=== PATIENT | female | born 1975 | race Caucasian/White ===

== ENCOUNTER 2019-11-04 08:28 | Outpatient (CLI) | payer OTHER, SELFPAY ==
--- NOTE | 2019-11-04 08:33 | MM_ITS ---
WS: [id number] SCREENING DIGITAL MAMMOGRAM WITH CAD HISTORY: SCREENING COMPARISON: None available. Bilateral CC and MLO views submitted. Computer aided detection analyzed. Breast composition: The breasts are extremely dense, which lowers the sensitivity of mammography. No suspicious masses, microcalcifications or architectural distortion. MM/[id number] IMPRESSION: BI-RADS: 1-Negative FOLLOW UP: 1 Year Follow-up
== END 2019-11-04 08:29 | disposition home or self-care (01) ==
LOC: RADSHAW 08:28
PROVIDERS: PCP Family Medicine; Visit Provider Family Medicine
DX: Z12.31 Encounter for screening mammogram for malignant neoplasm of breast (principal)
CPT/HCPCS: 77067

== ENCOUNTER → 2022-10-23 16:19 | Outpatient (BNVA) | payer SELFPAY | PROVIDERS: PCP Family Medicine; Visit Provider Family Medicine | DX: Z01.419 Encounter for gynecological examination (general) (routine) without abnormal findings (principal); Z12.4 Encounter for screening for malignant neoplasm of cervix | CPT/HCPCS: 87624 ==

== ENCOUNTER 2022-11-27 11:59 | Outpatient (CLI) | payer OTHER, SELFPAY ==
--- NOTE | 2022-11-27 12:06 | MM_ITS ---
WS: [id number] BILATERAL 3D TOMOSYNTHESIS DIGITAL SCREENING MAMMOGRAPHY WITH CAD CLINICAL INFORMATION: Screening mammogram HISTORY: Screening mammogram. No current complaints. COMPARISON: November 04, 2019 TECHNIQUE: Bilateral CC and MLO views. FINDINGS: The breasts are composed of heterogeneous fibroglandular density tissue, which can limit the detectio n of small underlying mass lesions. No suspicious mass, asymmetry, calcifications, or architectural d istortion. No evidence of malignancy. MM/[id number] IMPRESSION: BI-RADS: 1-Negative FOLLOW UP: 1 Year Follow-up Recommend return to annual screening mammography.
== END 2022-11-27 12:00 | disposition home or self-care (01) ==
LOC: RAD 12:04 → MOBLMAM 12:06
PROVIDERS: PCP Family Medicine; Visit Provider Family Medicine
DX: Z12.31 Encounter for screening mammogram for malignant neoplasm of breast (principal)
CPT/HCPCS: 77063; 77067

== ENCOUNTER 2023-03-28 06:00 | Day surgery (SDC) | payer SELFPAY ==
[2023-03-28 06:20] VITALS: BP 119/75; PULSE 74; RESP 16; TEMP 36.5; O2SAT 99; BMI 29.8
[2023-03-28 06:24] LABS: OR HCG Qualitative Urine Negative (Negative)
[2023-03-28] MEDS: sodium chloride 0.9% 1,000 ML 30 ML IV (06:26)
--- NOTE | 2023-03-28 06:55 | ANES.PREANE2 ---
Pre-Anesthetic Assessment Height/Weight: Height 1.68 m Weight 83.915 kg Temp Pulse Resp BP Pulse Ox O2 Del Method 97.7 F 74 16 119/75 99 Room Air 03/28/23 06:20 03/28/23 06:20 03/28/23 06:20 03/28/23 06:20 03/28/23 06:20 03/28/23 06:20 Preop Diagnosis: screening Operation Date: 03/28/23 07:00 Proposed Procedures p [id number] colon D0121 screen colon A risk Z12.11(Not Applicable) - Logan Chaves, DO Was Beta Alisha taken within 24 hours: N/A Was Clonidine taken within 24 hours: N/A Last intake: Intake Last Liquid Date 03/27/23 Last Liquid Time 19:00 Last Solid Date 03/26/23 Last Solid Time 18:00 Social No alcohol and No tobacco Exam alert, oriented x 3, clear to auscultation bilaterally and regular rate & rhythm Airway Submandibular: within normal limits Cervical ROM: within normal limits Mallampati: Class I History/ROS No significant history except as noted and No significant complaints Pulmonary None reported CV/HEM None reported None reported Hepatic None reported GI None reported Metabolic None reported Musc/skel None reported Neuropsych None reported Anesthetic Plan ASA status: 1 Anesthesia: Anesthesia Evaluation and MAC Risk of > 500 ml blood loss (7ml/kg in children): Yes, adequate IV access and fluids planned Medications/Allergies Home Medications Medication Instructions Recorded Confirmed Last Taken Type cetirizine 10 mg capsule (Zyrtec) 10 mg PO DAILY 02/07/23 03/28/23 03/27/23 History Allergies Allergy/AdvReac Type Severity Reaction Status Date / Time Sulfa (Sulfonamide Allergy ALGY-Rash Verified 03/28/23 06:18 Antibiotics) Current Medications Generic Name Dose Route Start Last Admin Trade Name Freq PRN Reason Stop Dose Admin Sodium Chloride 1,000 mls @ 30 mls/hr 03/28/23 06:15 03/28/23 06:26 Sodium Chloride 0.9% IV 03/29/23 06:14 30 mls/hr .Q24H EVAN Administration PFSH Anesthesia Female Reproductive History Date of last menstrual period: 03/21/23 Data Anesthesia Cardiac Studies: No Data to Display
--- NOTE | 2023-03-28 06:59 | P.HP_ITS ---
Providers/Chief Complaint Primary Care Provider: Asher Gutierrez MD Chief Complaint: Z12.11 History of Present Illness Rosa Isela Andersen is a 47 year old female Review of Systems General: Reports: 10 or more systems reviewed and unremarkable except in HPI and below Medications/Allergies Home Medications Medication Instructions Recorded Confirmed Last Taken Type cetirizine 10 mg capsule (Zyrtec) 10 mg PO DAILY 02/07/23 03/28/23 03/27/23 History Allergies Allergy/AdvReac Type Severity Reaction Status Date / Time Sulfa (Sulfonamide Allergy ALGY-Rash Verified 03/28/23 06:18 Antibiotics) PFSH Acute 2 Female Reproductive History: Date of last menstrual period: 03/21/23 Vitals/I&O/Wt Last Vital Signs Temp 97.7 F 03/28/23 06:20 Pulse 74 03/28/23 06:20 Resp 16 03/28/23 06:20 BP 119/75 03/28/23 06:20 Pulse Ox 99 03/28/23 06:20 O2 Del Method Room Air 03/28/23 06:20 Weight last 48 hrs Weight 185 lb A&P Assessment and plan (1) Colon cancer screening: Plan Colonoscopy Attestations Medical Necessity Statement*: home Coding Level of Care Code Acute Code for Chg Fwd Diagnoses Colon cancer screening Z12.11
[2023-03-28 07:20] VITALS: BP 97/58; PULSE 65; RESP 14; TEMP 36.6; O2SAT 98
[2023-03-28 07:34] VITALS: BP 116/66; PULSE 68; RESP 18; O2SAT 100
--- NOTE | 2023-03-28 10:12 | ANE.PACU2 ---
Inpatient post-anesthesia follow up: Airway intact: Yes Vital signs: Temperature 97.8 F Pulse Rate 68 Respiratory Rate 18 Blood Pressure 116/66 Pulse Oximetry 100 Oxygen Delivery Me thod Room Air Oxygen Flow Rate Fraction of Inspir ed Oxygen Hydration adequate: Yes Nausea and vomiting: No Pain level: 2 Mental status: Baseline
== END 2023-03-28 08:11 | disposition home or self-care (01) ==
PROVIDERS: Anesthesiology; PCP Family Medicine; Visit Provider Surgery
PROC: 0DJD8ZZ Inspection of Lower Intestinal Tract, Via Natural or Artificial Opening Endoscopic (ICD-10-PCS; CPT 45378; principal; 2023-03-28 07:00)
DX: Z12.11 Encounter for screening for malignant neoplasm of colon (principal); D12.2 Benign neoplasm of ascending colon
CPT/HCPCS: 45385; 81025; 84703; 88305; J2704; J7030

== ENCOUNTER 2024-10-02 12:34 | Outpatient (CLI) | payer SELFPAY ==
--- NOTE | 2024-10-02 12:45 | MM_ITS ---
WS: [id number] BILATERAL 3D TOMOSYNTHESIS DIGITAL DIAGNOSTIC MAMMOGRAPHY WITH CAD CLINICAL INFORMATION: left breast lump COMPARISON: 2022 TECHNIQUE: Bilateral CC, MLO, and ML views. FINDINGS: The breasts are composed of heterogeneous fibroglandular density, which can limit the detection of small underlying mass lesions. Dense parenchymal tissue deep to the palpable marker with nodularity subareolar LEFT breast. Ultrasound is pending. ULTRASOUND BREAST LEFT TECHNIQUE: Ultrasound left breast focused area of concern. CLINICAL INFORMATION: left breast lump FINDINGS: Ultrasound retroareolar LEFT breast. Several simple appearing breast cysts the largest measuring 3.0 x 1.7 x 2.2 cm. Smaller cyst measuring 2.1 x 1.2 x 1.9 cm. MM/MM diag tomosynthesis [id number] IMPRESSION: DENSITY: The breasts are heterogeneously dense, which may obscure small masses. BI-RADS: 2 - Benign FOLLOW UP: 1 Year Follow-up Recommend return to annual screening mammography.
--- NOTE | 2024-10-02 13:15 | US_ITS ---
WS: [id number] BILATERAL 3D TOMOSYNTHESIS DIGITAL DIAGNOSTIC MAMMOGRAPHY WITH CAD CLINICAL INFORMATION: left breast lump COMPARISON: 2022 TECHNIQUE: Bilateral CC, MLO, and ML views. FINDINGS: The breasts are composed of heterogeneous fibroglandular density, which can limit the detection of small underlying mass lesions. Dense parenchymal tissue deep to the palpable marker with nodularity subareolar LEFT breast. Ultrasound is pending. ULTRASOUND BREAST LEFT TECHNIQUE: Ultrasound left breast focused area of concern. CLINICAL INFORMATION: left breast lump FINDINGS: Ultrasound retroareolar LEFT breast. Several simple appearing breast cysts the largest measuring 3.0 x 1.7 x 2.2 cm. Smaller cyst measuring 2.1 x 1.2 x 1.9 cm. US/US breast LT limited* [id number] IMPRESSION: DENSITY: The breasts are heterogeneously dense, which may obscure small masses. BI-RADS: 2 - Benign FOLLOW UP: 1 Year Follow-up Recommend return to annual screening mammography.
== END 2024-10-02 12:35 | disposition home or self-care (01) ==
PROVIDERS: PCP Family Medicine; Visit Provider Family Medicine
DX: N63.20 Unspecified lump in the left breast, unspecified quadrant (principal); R92.333 Mammographic heterogeneous density, bilateral breasts
CPT/HCPCS: 76642; 77062; G0279